=== PATIENT | male | born 1960 | race Caucasian/White ===

== ENCOUNTER 2022-05-07 16:18 | Observation (INO) ==
--- NOTE | 2022-05-07 16:28 | Emergency Department Note ---
History of Present Illness General Chief complaint: Abdominal Pain Stated complaint: ABDOMINAL PAIN, NAUSEA, VOMITING Time Seen by Provider: 05/07/22 16:24 History of Present Illness Maximum Pain Intensity: 10 62-year-old male who presents to the emergency department with his with co mplaint of severe central abdominal pain. Reports that the pain started around 10 AM this morning while he was working. The patient reports that he ate a peanut butter filled doughnut, and had a coffee earlier in the morning. When he started to develop the discomfort, he sat down for a while, and the pain did improve. When the pain started to come back, he went to the [employer] in [place], sat down in the parking lot, and had multiple episodes of dry heaving. The patient then drove home, and reported that the pain did subside somewhat, but has now come back again. The pain does not radiate into the back or chest. He denies any significant alleviating or aggravating factors for the pain. He reports that his abdomen is grumbling. Patient last had a colonoscopy in 2019 showing polyps and internal hemorrhoids. The patient denies any recent change in stool pattern or urine. Patient denies any alleviating or aggravating factors for the pain at this time. Had some abdominal issues in the past when he lived in [place], [place]. He was referred to [facility] with a rather extensive work-up that was unremarkable. The patient currently rates his discomfort a 10 out of 10. Home Medications Medication Instructions Recorded Confirmed Type aspirin 81 mg tablet,delayed 81 mg PO DAILY #90 tabs 12/20/20 05/07/22 Rx release cholecalciferol (vitamin D3) 25 25 mcg PO DAILY #30 caps 10/17/21 05/07/22 Rx mcg (1,000 unit) capsule mecobalamin (vitamin B12) 1,000 1,000 mcg sublingual DAILY #30 tabs 10/17/21 05/07/22 Rx mcg disintegrating tablet,sublingual pravastatin 10 mg tablet 10 mg PO DAILY #30 tabs 11/02/21 05/07/22 Rx enalapril maleate 20 mg tablet 20 mg PO BID #180 tabs 01/01/22 05/07/22 Rx levothyroxine 88 mcg tablet 88 mcg PO DAILY #90 tabs 01/01/22 05/07/22 Rx sildenafil 50 mg tablet 50 mg PO DAILY PRN sexual activity 04/17/22 05/07/22 Rx #30 tabs Allergies Allergy/AdvReac Type Severity Reaction Status Date / Time rosuvastatin AdvReac myalgia Verified 05/07/22 16:39 Past Med/Surg History Medical History Carotid artery stenosis with cerebral infarction Chest pain Hx TIA/stroke w/o resid Hyperlipidemia Hypertension Hypothyroidism Psoriasis Surgical History H/O colonoscopy H/O oral surgery Family History Grandmother (Maternal) Myocardial infarction Father Colon cancer Denies family history of Ovarian cancer Prostate cancer Breast cancer Social History Smoking Status: Former smoker Tobacco Type: Cigarettes packs per day: 1; Second Hand Exposure: No; Do You Dip or Chew Tobacco: No; Hx Alcohol Use: Yes Alcohol type: beer Hx Substance Use: No Preferred Language: Gambian Communication Ability: Unable Visual Impairment: No Limitations Hearing Ability: Normal Mechanist Required: No Beliefs That Will Affect Care: None marital status: Current Living Situation: Spouse current occupational status: employed Other Information That Helps Us Care for You: No Feels Safe at Home: Yes Safety Concerns: Feels Safe At This Time Dental Care, Regularly: Yes Physical Activity Frequency: Does not Exercise Seatbelt Use: always Review of Systems 10 system review was performed and was negative except for pertinent positives and negatives as indicated in history of present illness Physical Exam Vital Signs Vital Signs - 24 hr 05/07/22 16:19 05/07/22 17:44 05/07/22 16:31 Temperature 36.9 C Temperature Source Oral Pulse Rate 72 Pulse Rate [Apical] 73 Pulse Rhythm [Apical] Regular Pulse Strength [Apical] Normal Respiratory Rate 20 20 Respiratory Effort / Characteristics Non-Labored Spontaneous Non-Labored Respiratory Depth Normal Normal Respiratory Pattern Regular Blood Pressure 214/94 H Blood Pressure [Right Arm] 212/94 H Blood Pressure Mean 134 Blood Pressure Mean [Right Arm] 133 Blood Pressure Position Sitting Blood Pressure Position [Right Arm] Lying Pulse Oximetry 97 96 95 Oxygen Delivery Method Room Air Room Air Room Air Oxygen Flow Rate Sepsis Recent Fever Within 48 Hours No Sepsis New/Unexplained Change in Mental Status No Sepsis Action Taken by Nursing No Action Required Oxygen Flow Rate - Titration Pulse Oximetry Post Tiitration 05/07/22 17:31 05/07/22 18:12 05/07/22 18:12 Temperature Temperature Source Pulse Rate Pulse Rate [Apical] 71 69 Pulse Rhythm [Apical] Regular Regular Pulse Strength [Apical] Normal Normal Respiratory Rate 20 18 Respiratory Effort / Characteristics Non-Labored Spontaneous Non-Labored Spontaneous Respiratory Depth Normal Normal Respiratory Pattern Regular Regular Blood Pressure Blood Pressure [Right Arm] 163/96 H 143/72 H Blood Pressure Mean Blood Pressure Mean [Right Arm] 118 95 Blood Pressure Position Blood Pressure Position [Right Arm] Sitting Sitting Pulse Oximetry 96 86 L 93 Oxygen Delivery Method Room Air Nasal Cannula Nasal Cannula Oxygen Flow Rate 0 2 Sepsis Recent Fever Within 48 Hours Sepsis New/Unexplained Change in Mental Status Sepsis Action Taken by Nursing Oxygen Flow Rate - Titration 2 Pulse Oximetry Post Tiitration 93 05/07/22 20:00 Temperature Temperature Source Pulse Rate Pulse Rate [Apical] 68 Pulse Rhythm [Apical] Regular Pulse Strength [Apical] Respiratory Rate 16 Respiratory Effort / Characteristics Respiratory Depth Respiratory Pattern Blood Pressure Blood Pressure [Right Arm] 157/114 H Blood Pressure Mean Blood Pressure Mean [Right Arm] 128 Blood Pressure Position Blood Pressure Position [Right Arm] Pulse Oximetry 96 Oxygen Delivery Method Oxygen Flow Rate Sepsis Recent Fever Within 48 Hours Sepsis New/Unexplained Change in Mental Status Sepsis Action Taken by Nursing Oxygen Flow Rate - Titration Pulse Oximetry Post Tiitration CONSTITUTIONAL: Healthy and well nourished. Alert and oriented X 3. Patient appears in moderate to severe discomfort. Patient appears restless. HEENT: No scleral icterus or conjunctival injection/pallor. Mucous membranes are dry. NECK: Full active range of motion without discomfort. LYMPHATICS: No cervical chain adenopathy. RESPIRATORY: Clear to auscultation bilaterally with no wheezing, crackles, rhonchi or stridor. CARDIOVASCULAR: Regular rate and rhythm with no murmurs, rubs or gallops. GASTROINTESTINAL: Bowel sounds present in all quadrants. Patient does not have any focal abdominal tenderness to palpation. Negative McBurney's point tenderness. Negative CVA tenderness. No palpable pulsatile masses. No bruits on auscultation. MUSCULOSKELETAL: Full range of motion of all joints without discomfort. INTEGUMENTARY: No rash or other significant dermatologic conditions noted. HEMATOLOGIC: No ecchymosis or petechiae. PSYCHIATRIC: Positive affect. NEUROLOGIC: No focal neurologic deficits noted. Course Course Patient history and physical exam were performed. Nurses notes were reviewed. Vital signs were reviewed, showing an elevated blood pressure. IV access was established, and labs are drawn. The patient was hydrated with a liter normal saline, and administered IV morphine and Zofran for pain and nausea. Review of labs leukocytosis with left shift and bandemia. Lactate was normal. CMP shows an elevated random glucose, otherwise labs were grossly normal. Urinalysis was not suggestive of infection. Prior to CT imaging, I did receive a phone call from the patient's nurse that he was in severe discomfort and crawling all over the bed. At this point, I became concerned for possible aortic dissection, and changed his CT order to a CT angiogram of the abdomen and pelvis, which was performed and showed a possible small bowel obstruction. Upon reevaluation, the patient did report improvement of pain, but reported that the pain was starting to come back again. The case was also discussed with Dr. Perez, ED team physician, who recommended consultation with the hospitalist service for possible admission. The patient was in agreement with this plan as well. COVID-19 test was ordered and was negative. Case was further discussed with Dr. Swan, [facility] hospitalist, who has agreed with admission. Please see hospitalist dictations for further treatment and final disposition. Administered Medications Heparin Sodium (Porcine) (Heparin Sod 5,000 Unit/0.5 Ml Vial) 5,000 units SQ Q 12 MICHAEL Stop: 06/06/22 21:37 Last Admin: 05/07/22 22:34 Dose: Not Given Documented By: SANTA Lactated Ringer's (Lr) 1,000 mls @ 115 mls/hr IV .Q8H42M MICHAEL Stop: 06/06/22 20:14 Last Admin: 05/07/22 22:33 Dose: 115 mls/hr Documented By: SANTA Acetaminophen (Ofirmev) 1,000 mg in 100 mls @ 400 mls/hr IV Q8H PRN PRN Reason: mild pain while NPO Stop: 05/10/22 21:37 Last Infusion: 05/07/22 22:34 Dose: 0 mls/hr Documented By: Admin: 05/07/22 22:11 Dose: 400 mls/hr Documented By: SANTA Discontinued Medications Hydromorphone HCl (Hydromorphone Inj 1 Mg/Ml Syringe) 1 mg IV NOW STA Stop: 05/07/22 17:26 Last Admin: 05/07/22 17:28 Dose: 1 mg Documented By: MYRTLE Sodium Chloride (Nss 1000ml) 1,000 mls @ 999 mls/hr IV .Q1H1M STA Stop: 05/07/22 17:39 Last Infusion: 05/07/22 18:12 Dose: 0 mls/hr Documented By: Admin: 05/07/22 17:12 Dose: 999 mls/hr Documented By: MYRTLE Ioversol (Optiray 300 500ml) 115 ml IV ONCE ONE Stop: 05/07/22 17:52 Last Admin: 05/07/22 17:54 Dose: 115 ml Documented By: ALANA Morphine Sulfate (Morphine Sulfate 4 Mg/Ml 1 Ml Carp\Vial) 4 mg IV NOW STA Stop: 05/07/22 16:40 Last Admin: 05/07/22 17:14 Dose: 4 mg Documented By: MYRTLE Ondansetron HCl (Ondansetron Inj 2 Mg/Ml 2 Ml Vial) 4 mg IV NOW STA Stop: 05/07/22 16:40 Last Admin: 05/07/22 17:12 Dose: 4 mg Documented By: MYRTLE Medical Decision Making Medical Records Attestation: I reviewed the patient's medical records. Home Medications Current Medication List: was personally reviewed by me Laboratory Data Attestation: I reviewed the patient's lab results. Result diagrams: 05/07/22 16:30 05/07/22 16:30 Lab Results 05/07/22 05/07/22 05/07/22 Range/Units 16:30 16:30 16:30 WBC 12.12 H (4.8-10.8) K/ul RBC 5.35 (4.63-6.08) M/uL Hgb 16.8 (14.0-18.0) g/dl Hct 49.8 (40.1-51.0) % MCV 93.1 (80.0-100.0) fL MCH 31.4 (25.0-34.0) pg MCHC 33.7 (32.0-36.0) g/dL RDW Std Deviation 45.4 (36.4-46.3) fL RDW Coeff of Angelina 13.2 (11.5-14.5) % Plt Count 163 (130-400) K/uL MPV 12.5 H (9.4-12.4) fL Immature Gran % (Auto) 0.5 % Neut % (Auto) 84.3 % Lymph % (Auto) 11.4 % Addison % (Auto) 3.3 % Eos % (Auto) 0.2 % Baso % (Auto) 0.3 % Neut # (Auto) 10.22 H (1.4-6.5) K/uL Lymph # (Auto) 1.38 (1.2-3.4) K/uL Addison # (Auto) 0.40 (0.24-0.82) K/uL Eos # (Auto) 0.02 (0-0.50) K/uL Baso # (Auto) 0.04 (0-0.2) K/uL Immature Gran # (Auto) 0.06 H (0.00-0.02) K/uL Sodium 136 (136-145) mmol/L Potassium 4.5 (3.5-5.1) mmol/L Chloride 104 (98-107) mmol/L Carbon Dioxide 27 (21-32) mmol/L Anion Gap 5 (3-11) BUN 15 (6-23) mg/dl Creatinine 0.90 (0.6-1.4) mg/dl Est Cr Clr Drug Dosing 102.5 ml/min Est GFR ( Amer) 106.5 ml/min Est GFR (Non-Af Amer) 91.9 ml/min BUN/Creatinine Ratio 16.7 (10-20) Glucose 136 H (70-99(Fasting)) mg/dl Lactate (0.4-2.0) mmol/L Calcium 9.6 (8.5-10.1) mg/dl Total Bilirubin 0.4 (0.2-1.0) mg/dl AST 16 (13-39) U/L ALT 22 (7-52) U/L Alkaline Phosphatase 81 (34-104) U/L Troponin I High Sens 7.1 (0-20) pg/ml Total Protein 7.6 (6.0-8.3) gm/dl Albumin 4.7 (3.4-5.0) gm/dl Globulin 2.9 (2.5-4.0) gm/dl Albumin/Globulin Ratio 1.6 (0.9-2) Lipase 24 (11-82) U/L Urine Color Yellow Urine Appearance Clear (Clear) Urine pH 7.5 (4.5-7.5) Ur Specific [place] 1.020 (1.000-1.030) Urine Protein 1+ H (Negative) Urine Glucose (UA) Negative (Negative) Urine Ketones Negative (Negative) Urine Blood Negative (Negative) Urine Nitrite Negative (Negative) Urine Bilirubin Negative (Negative) Urine Urobilinogen Negative (Negative) Ur Leukocyte Esterase Negative (Negative) Urine WBC (Auto) 1-5 (0-5) /hpf Urine RBC (Auto) 0-4 (0-4) /hpf U Hyaline Cast (Auto) 1-5 (0-5) /lpf U Epithel Cells (Auto) 10-20 H (0-5) /lpf Urine Bacteria (Auto) Negative (Negative) 05/07/22 Range/Units 17:31 WBC (4.8-10.8) K/ul RBC (4.63-6.08) M/uL Hgb (14.0-18.0) g/dl Hct (40.1-51.0) % MCV (80.0-100.0) fL MCH (25.0-34.0) pg MCHC (32.0-36.0) g/dL RDW Std Deviation (36.4-46.3) fL RDW Coeff of Angelina (11.5-14.5) % Plt Count (130-400) K/uL MPV (9.4-12.4) fL Immature Gran % (Auto) % Neut % (Auto) % Lymph % (Auto) % Addison % (Auto) % Eos % (Auto) % Baso % (Auto) % Neut # (Auto) (1.4-6.5) K/uL Lymph # (Auto) (1.2-3.4) K/uL Addison # (Auto) (0.24-0.82) K/uL Eos # (Auto) (0-0.50) K/uL Baso # (Auto) (0-0.2) K/uL Immature Gran # (Auto) (0.00-0.02) K/uL Sodium (136-145) mmol/L Potassium (3.5-5.1) mmol/L Chloride (98-107) mmol/L Carbon Dioxide (21-32) mmol/L Anion Gap (3-11) BUN (6-23) mg/dl Creatinine (0.6-1.4) mg/dl Est Cr Clr Drug Dosing ml/min Est GFR ( Amer) ml/min Est GFR (Non-Af Amer) ml/min BUN/Creatinine Ratio (10-20) Glucose (70-99(Fasting)) mg/dl Lactate 1.1 (0.4-2.0) mmol/L Calcium (8.5-10.1) mg/dl Total Bilirubin (0.2-1.0) mg/dl AST (13-39) U/L ALT (7-52) U/L Alkaline Phosphatase (34-104) U/L Troponin I High Sens (0-20) pg/ml Total Protein (6.0-8.3) gm/dl Albumin (3.4-5.0) gm/dl Globulin (2.5-4.0) gm/dl Albumin/Globulin Ratio (0.9-2) Lipase (11-82) U/L Urine Color Urine Appearance (Clear) Urine pH (4.5-7.5) Ur Specific [place] (1.000-1.030) Urine Protein (Negative) Urine Glucose (UA) (Negative) Urine Ketones (Negative) Urine Blood (Negative) Urine Nitrite (Negative) Urine Bilirubin (Negative) Urine Urobilinogen (Negative) Ur Leukocyte Esterase (Negative) Urine WBC (Auto) (0-5) /hpf Urine RBC (Auto) (0-4) /hpf U Hyaline Cast (Auto) (0-5) /lpf U Epithel Cells (Auto) (0-5) /lpf Urine Bacteria (Auto) (Negative) Imaging Data Attestation: I personally reviewed and interpreted this imaging study as follows: My Impression: My interpretation of a CT with IV contrast of the abdomen and pelvis is suggestive of a small bowel obstruction. No evidence for aortic dissection, diverticulitis, appendicitis or abdominal free air. Radiologist report was also reviewed. Radiologist's Impression: Abdomen/Pelvis CTA 05/07/22 17:27 CT ANGIOGRAPHY OF THE ABDOMEN AND PELVIS CLINICAL HISTORY: Severe central abdominal pain. COMPARISON STUDY: CT of the abdomen and pelvis December 04, 2013. TECHNIQUE: Helical axial images of the abdomen and pelvis were obtained during arterial phase following intravenous injection 115 cc Optiray 320 IV. Sagittal and coronal reconstructed reviewed as well as maximal intensity projections on an independent 3-D workstation. Automated exposure control was utilized for the study. A dose lowering technique was utilized adhering to the principles of ALARA. FINDINGS: Lung bases are unremarkable. No pneumatosis, free air or portal venous gas is present. A 1.6 cm hypervascular right hepatic dome lesion is unchanged since prior CT and MRI. This is benign. This favors focal nodular hyperplasia. Spleen, adrenal glands and pancreas are unremarkable. There is no biliary or pancreatic ductal dilatation. There is no hydronephrosis. The appendix is normal. Multiple loops of mildly dilated jejunum are noted with possible mild wall thickening. There is a possible transition point within the left upper quadrant on axial image 199 of 511. The more distal small bowel is relatively decompressed. Sigmoid diverticulosis is noted without evidence for acute diverticulitis. There is no lymphadenopathy. There is no ascites. No fluid collection to suggest an abscess. There is moderate plaque of the abdominal aorta which is normal in caliber. The major branch vessels are patent. There is no dissection or aneurysm within the abdomen or pelvis. IMPRESSION: 1. Several loops of mildly dilated jejunum with possible transition point within the left upper quadrant. Mild jejunal wall thickening. These findings could reflect a developing partial small bowel obstruction or a nonspecific enteritis. 2. Moderate plaque of the abdominal aorta. Patent branch vessels. No dissection or aneurysm within the abdomen or pelvis. 3. Stable 1.6 cm hypervascular right hepatic dome lesion suggestive of focal nodular hyperplasia. This is benign. 4. Normal appendix. ACT 112: Negative or not required by law. Electronically signed by: Selvin Leija M.D. 05/07/2022 6:20 PM Blood Pressure Blood Pressure Findings: Elevated blood pressure MDM Narrative The emergency department with complaint of severe abdominal pain, nausea and vomiting. With the severity of his discomfort while in the emergency department, I did elect to do CT angiography of the abdomen and pelvis, showing no evidence for aortic dissection. A partial small bowel obstruction is suspected. CT does not show evidence for diverticulitis, appendicitis or perforation. Infectious etiology was also considered with the patient's mild leukocytosis, however this could also be reactive. Laboratory studies are not suggestive of pancreatitis, cholecystitis or hepatitis. Urinalysis also was not suggestive of UTI or kidney stone. Impression & Plan Small bowel obstruction, Continuous severe abdominal pain, Nausea and vomiting Discharge Plan Visit Data Chief Complaint: Abdominal Pain Stated Complaint: ABDOMINAL PAIN, NAUSEA, VOMITING ED Provider: Prashant Perez ED Midlevel Provider: Tito Kinney Discharge Problem: Small bowel obstruction, Continuous severe abdominal pain, Nausea and vomiting Patient Disposition: Admitted As Inpatient Discharge Instructions Interventions: ED Discharge Assessment Last Done: 05/07/22 21:40
[2022-05-07] MEDS ORDERED: ONDANSETRON INJ 2 MG/ML 2 ML VIAL IV STA (16:39)
[2022-05-07] MEDS ORDERED: MoRPHine SULFATE 4 MG/ML 1 ML CARP\\VIAL IV STA (16:39)
[2022-05-07] MEDS ORDERED: SODIUM CHLORIDE 0.9% 1000ML 1,000 ML IV STA (16:39)
[2022-05-07 16:52] LABS: Basophils # (auto) 0.04 K/uL (0-0.2); Basophils % (auto) 0.3 %; Eosinophils # (auto) 0.02 K/uL (0-0.50); Eosinophils % (auto) 0.2 %; Hematocrit (blood only) 49.8 % (40.1-51.0); Hemoglobin 16.8 g/dl (14.0-18.0); Immature Granulocytes # (auto) 0.06 K/uL (0.00-0.02); Immature Granulocytes % (auto) 0.5 %; Lymphocytes # (auto) 1.38 K/uL (1.2-3.4); Lymphocytes % (auto) 11.4 %; Mean Corpuscular Hemoglobin 31.4 pg (25.0-34.0); Mean Corpuscular Hgb Conc 33.7 g/dL (32.0-36.0); Mean Corpuscular Volume 93.1 fL (80.0-100.0); Mean Platelet Volume 12.5 fL (9.4-12.4); Monocytes % (auto) 3.3 %; Neutrophils # (auto) 10.22 K/uL (1.4-6.5); Neutrophils % (auto) 84.3 %; Platelet Count 163 K/uL (130-400); RDW Coefficient of Variation 13.2 % (11.5-14.5); RDW Standard Deviation 45.4 fL (36.4-46.3); Red Blood Count 5.35 M/uL (4.63-6.08); White Blood Count 12.12 K/ul (4.8-10.8)
[2022-05-07 17:08] LABS: Appearance Urine Clear (Clear); Bacteria Urine Automated Negative (Negative); Bilirubin Urine Negative (Negative); Blood Urine Negative (Negative); Color Urine Yellow; Glucose Urine UA Negative (Negative); Ketones Urine Negative (Negative); Leukocyte Esterase Urine Negative (Negative); Nitrite Urine Negative (Negative); RBC Urine Automated 0-4 /hpf (0-4); Urobilinogen Urine Negative (Negative); pH Urine 7.5 (4.5-7.5)
[2022-05-07 17:12] LABS: Protein Urine 1+ (Negative)
[2022-05-07 17:25] LABS: Albumin Globulin Ratio 1.6 (0.9-2); Albumin Level 4.7 gm/dl (3.4-5.0); BUN Creatinine Ratio 16.7 (10-20); Bilirubin,Total 0.4 mg/dl (0.2-1.0); Calcium 9.6 mg/dl (8.5-10.1); Creatinine Clr Calc Pharmacy 102.5 ml/min; Est GFR (African American) 106.5 ml/min; Est GFR (Non-African American) 91.9 ml/min; Globulin 2.9 gm/dl (2.5-4.0); Potassium 4.5 mmol/L (3.5-5.1); Total Protein 7.6 gm/dl (6.0-8.3)
[2022-05-07] MEDS ORDERED: HYDROmorphone INJ 1 MG/ML SYRINGE IV STA (17:25)
[2022-05-07 17:28] LABS: Troponin I High Sensitivity 7.1 pg/ml (0-20)
[2022-05-07] MEDS ORDERED: OPTIRAY 300 500mL IV ONE (17:51)
--- NOTE | 2022-05-07 18:22 | CT Scan Report ---
CT ANGIOGRAPHY OF THE ABDOMEN AND PELVIS CLINICAL HISTORY: Severe central abdominal pain. COMPARISON STUDY: CT of the abdomen and pelvis December 04, 2013. TECHNIQUE: Helical axial images of the abdomen and pelvis were obtained during arterial phase followi ng intravenous injection 115 cc Optiray 320 IV. Sagittal and coronal reconstructed reviewed as well a s maximal intensity projections on an independent 3-D workstation. Automated exposure control was uti lized for the study. A dose lowering technique was utilized adhering to the principles of ALARA. FINDINGS: Lung bases are unremarkable. No pneumatosis, free air or portal venous gas is present. A 1. 6 cm hypervascular right hepatic dome lesion is unchanged since prior CT and MRI. This is benign. Thi s favors focal nodular hyperplasia. Spleen, adrenal glands and pancreas are unremarkable. There is no biliary or pancreatic ductal dilatation. There is no hydronephrosis. The appendix is normal. Multipl e loops of mildly dilated jejunum are noted with possible mild wall thickening. There is a possible t ransition point within the left upper quadrant on axial image 199 of 511. The more distal small bowel is relatively decompressed. Sigmoid diverticulosis is noted without evidence for acute diverticuliti s. There is no lymphadenopathy. There is no ascites. No fluid collection to suggest an abscess. There is moderate plaque of the abdominal aorta which is normal in caliber. The major branch vessels are p atent. There is no dissection or aneurysm within the abdomen or pelvis. IMPRESSION: 1. Several loops of mildly dilated jejunum with possible transition point within the left upper quadr ant. Mild jejunal wall thickening. These findings could reflect a developing partial small bowel obst ruction or a nonspecific enteritis. 2. Moderate plaque of the abdominal aorta. Patent branch vessels. No dissection or aneurysm within th e abdomen or pelvis. 3. Stable 1.6 cm hypervascular right hepatic dome lesion suggestive of focal nodular hyperplasia. Thi s is benign. 4. Normal appendix. ACT 112: Negative or not required by law. Electronically signed by: Selvin Leija M.D. 05/07/2022 6:20 PM
--- NOTE | 2022-05-07 20:33 | History & Physical Report ---
Date of Service May 07, 2022 Assessment & Plan (1) SBO (small bowel obstruction): Plan: Acute onset of abdominal pain with nausea and 1 episode of vomiting. No history of abdominal surgery - no evidence of infarction noted on imaging, and lactate <2.0, no elevation of WBC - NPO - IVF - Pain control - KUB in am - General Surgery consultation appreciated - if symptoms not improving consider contrasted study with follow thorough for prognostication (2) Hyperlipidemia: Plan: Continue Pravastatin hx of intolerance to other/higher doses of statin (3) Hypertension: Plan: NPO - IV bolus dosing if >180/95 or symptomatic (4) Hypothyroidism: Plan: Continue synthroid when not NPO - If NPO status >24 hours convert Synthroid to IV with dose reduction (5) Vitamin B12 deficiency: Plan: Continue B12 oral when not NPO (6) Hx TIA/stroke w/o resid: Plan: Previously on Prdaxa and Plavix- now therapy of asa and statin - NPO - restart asa when able, if remains npo- consider rectal (7) Carotid artery stenosis with cerebral infarction: Plan: Routine imaging 04/23 Approximately 50-60% focal stenosis within the proximal left internal carotid artery No significant stenosis within the right internal carotid artery. A 5 mm penetrating ulcer at the takeoff of the right internal carotid artery. History of Present Illness Primary Care Provider: Edel Anthony MD 62 YOM with medical history of: TIA, HTN, Amberly's thyroiditis, b12 deficiency, carotid artery stenosis, right upper quad pain, current smoker. Patient comes to the EMD today for complaints of abdominal pain. This started this morning on his way to work. It was cramping type pain at epigastrium that progressed to bandlike pain without further radiation and associated with nausea and 1 episode of vomiting. He ate a doughnut this morning which he eventually threw back up around 1400. His pain progressed and he attempted to go the bathroom prior to coming to [facility] and he did not pass any gas or stool. Patient has no history of abdominal surgeries. He and his at the same food all weekend and she is without symptoms. In the EMD the patient had routine blood work completed, CT angio of the abdomen performed, this was interpreted as jejunal thickening, mildly dilated jejunum with possible transition point with differential of enteritis or partial small bowel obstruction. His pain was controlled following Dilaudid administration. His abdomen is soft, non tender, without any further vomiting or nausea. Last BM was this morning and noted to be more firm than normal. Patient will be admitted to medical floor, conservative therapy with NPO, IVF, pain control with IV Tylenol and Dilaudid, KUB in am and GS consultation. COVID test on admission is: NEGATIVE Allergies Allergy/AdvReac Type Severity Reaction Status Date / Time rosuvastatin AdvReac myalgia Verified 05/07/22 16:39 Home Medications Medication Instructions Recorded Confirmed Type aspirin 81 mg tablet,delayed 81 mg PO DAILY #90 tabs 12/20/20 05/07/22 Rx release cholecalciferol (vitamin D3) 25 25 mcg PO DAILY #30 caps 10/17/21 05/07/22 Rx mcg (1,000 unit) capsule mecobalamin (vitamin B12) 1,000 1,000 mcg sublingual DAILY #30 tabs 10/17/21 05/07/22 Rx mcg disintegrating tablet,sublingual pravastatin 10 mg tablet 10 mg PO DAILY #30 tabs 11/02/21 05/07/22 Rx enalapril maleate 20 mg tablet 20 mg PO BID #180 tabs 01/01/22 05/07/22 Rx levothyroxine 88 mcg tablet 88 mcg PO DAILY #90 tabs 01/01/22 05/07/22 Rx sildenafil 50 mg tablet 50 mg PO DAILY PRN sexual activity 04/17/22 05/07/22 Rx #30 tabs Past Med/Surg History Medical History Carotid artery stenosis with cerebral infarction Chest pain Hx TIA/stroke w/o resid Hyperlipidemia Hypertension Hypothyroidism Psoriasis Surgical History H/O colonoscopy H/O oral surgery Family History Grandmother (Maternal) Myocardial infarction Father Colon cancer Denies family history of Ovarian cancer Prostate cancer Breast cancer Social History Smoking Status: Current every day smoker Tobacco Type: Cigarettes packs per day: 1; Hx Alcohol Use: Yes Hx Substance Use: No Preferred Language: Bruneian Visual Impairment: No Limitations Hearing Ability: Normal marital status: Current Living Situation: Family current occupational status: employed Feels Safe at Home: Yes Dental Care, Regularly: Yes Physical Activity Frequency: Does not Exercise Seatbelt Use: always Review of Systems Review of Systems: REVIEW OF SYSTEMS: Constitutional: No fever, sweats or chills Eyes: No diplopia, no worsening or blurred vision ENT: normal hearing, no trouble swallowing Respiratory: No cough, sputum, dyspnea at rest or on exertion Cardiovascular: No chest pain, tightness or palpitations Abdomen: (+) pain, nausea, vomiting, no diarrhea or constipation Musculoskeletal: No joint pain, calf pain, swelling Neurologic: No weakness, numbness/tingling, or balance problems Psychiatric: No anxiety or depression Skin: No rash or itch Physical Exam Physical Exam: PHYSICAL EXAM: General: awake, alert, no apparent distress Head: Normocephalic, atraumatic ENT: PERRL, EOMI, no pharyngeal exudate, mucous membranes moist Neuro: AAO x 3, speech clear and appropriate, strength intact bilaterally 5/5, sensation intact and equal all extremities and dermatomes, no pronator drift Chest: equal rise and fall of the chest, no accessory muscle use, no heaves or thrills, Clear to auscultation, on room air, Cardiac: Regular rate and rhythm, telemetry reviewed, skin warm dry, cap refill <3 seconds, peripheral pulses +2 no JVD, no murmur, no JVD, no edema GI: hypoactive bowel sounds throughout, soft, nontender to palpation, no rebound, guarding or tenderness : Spontaneously voiding, no pain, no CVA tenderness, Extremities: Normal inspection, no peripheral edema or erythema, calfs nontender to palpation Psych: Normal mood and affect Skin: no rash or erythema Results & Data Results & Data ([facility]) Vital Signs (Past 12 Hours) Vital Signs Temp Pulse Pulse Resp BP BP Pulse Ox 05/07/22 18:12 69 18 143/72 H 93 05/07/22 18:12 86 L 05/07/22 17:31 71 20 163/96 H 96 05/07/22 16:31 73 20 212/94 H 95 05/07/22 17:44 96 05/07/22 16:19 36.9 C 72 20 214/94 H 97 O2 Del Method O2 Flow Rate 05/07/22 18:12 Nasal Cannula 2 05/07/22 18:12 Nasal Cannula 0 05/07/22 17:31 Room Air 05/07/22 16:31 Room Air 05/07/22 17:44 Room Air 05/07/22 16:19 Room Air Laboratory Results Abnormal lab results 05/07/22 05/07/22 05/07/22 Range/Units 16:30 16:30 16:30 WBC 12.12 H (4.8-10.8) K/ul MPV 12.5 H (9.4-12.4) fL Neut # (Auto) 10.22 H (1.4-6.5) K/uL Immature Gran # (Auto) 0.06 H (0.00-0.02) K/uL Glucose 136 H (70-99(Fasting)) mg/dl Urine Protein 1+ H (Negative) U Epithel Cells (Auto) 10-20 H (0-5) /lpf Diagnostic Findings Abdomen/Pelvis CTA 05/07/22 17:27 CT ANGIOGRAPHY OF THE ABDOMEN AND PELVIS CLINICAL HISTORY: Severe central abdominal pain. COMPARISON STUDY: CT of the abdomen and pelvis December 04, 2013. TECHNIQUE: Helical axial images of the abdomen and pelvis were obtained during arterial phase following intravenous injection 115 cc Optiray 320 IV. Sagittal and coronal reconstructed reviewed as well as maximal intensity projections on an independent 3-D workstation. Automated exposure control was utilized for the study. A dose lowering technique was utilized adhering to the principles of ALARA. FINDINGS: Lung bases are unremarkable. No pneumatosis, free air or portal venous gas is present. A 1.6 cm hypervascular right hepatic dome lesion is unchanged since prior CT and MRI. This is benign. This favors focal nodular hyperplasia. Spleen, adrenal glands and pancreas are unremarkable. There is no biliary or pancreatic ductal dilatation. There is no hydronephrosis. The appendix is normal. Multiple loops of mildly dilated jejunum are noted with possible mild wall thickening. There is a possible transition point within the left upper quadrant on axial image 199 of 511. The more distal small bowel is relatively decompressed. Sigmoid diverticulosis is noted without evidence for acute diverticulitis. There is no lymphadenopathy. There is no ascites. No fluid collection to suggest an abscess. There is moderate plaque of the abdominal aorta which is normal in caliber. The major branch vessels are patent. There is no dissection or aneurysm within the abdomen or pelvis. IMPRESSION: 1. Several loops of mildly dilated jejunum with possible transition point within the left upper quadrant. Mild jejunal wall thickening. These findings could reflect a developing partial small bowel obstruction or a nonspecific enteritis. 2. Moderate plaque of the abdominal aorta. Patent branch vessels. No dissection or aneurysm within the abdomen or pelvis. 3. Stable 1.6 cm hypervascular right hepatic dome lesion suggestive of focal nodular hyperplasia. This is benign. 4. Normal appendix. ACT 112: Negative or not required by law. Electronically signed by: Selvin Leija M.D. 05/07/2022 6:20 PM Medications Administered Home Medications aspirin 81 mg tablet,delayed release 81 mg PO DAILY #90 tabs 12/20/20 [Rx Confirmed 05/07/22] cholecalciferol (vitamin D3) 25 mcg (1,000 unit) capsule 25 mcg PO DAILY #30 caps 10/17/21 [Rx Confirmed 05/07/22] mecobalamin (vitamin B12) 1,000 mcg disintegrating tablet,sublingual 1,000 mcg sublingual DAILY #30 tabs 10/17/21 [Rx Confirmed 05/07/22] pravastatin 10 mg tablet 10 mg PO DAILY #30 tabs 11/02/21 [Rx Confirmed 05/07/22] enalapril maleate 20 mg tablet 20 mg PO BID #180 tabs 01/01/22 [Rx Confirmed 05/07/22] levothyroxine 88 mcg tablet 88 mcg PO DAILY #90 tabs 01/01/22 [Rx Confirmed 05/07/22] sildenafil 50 mg tablet 50 mg PO DAILY PRN sexual activity #30 tabs 04/17/22 [Rx Confirmed 05/07/22] Active Medications Lactated Ringer's (Lr) 1,000 mls @ 115 mls/hr IV .[id number] [facility] Stop: 06/06/22 20:14 ECG Additional Comments: Normal sinus rhythm Normal ECG No previous ECGs available Code Status & VTE Plan Code Status CODE: FULL VTE: SCDS, Heparin 5000 units sub q q12 Supervising Physician Co-Signing Physician Notes Patient seen and examined, chart reviewed, case discussed with JOHNNY Navarro and I agree with the assessment and plan as above. In brief, patient is a 62yo male with history of HTN, HLP, Hypothyroidism and prior TIA presenting with abdominal pain with nausea and non-bloody/non-bilious vomiting. Presently not passing flatus, no BM. Imaging as above suggestive of partial SBO vs enteritis. Patient in significant discomfort upon arrival to the ER, now improved after IV Dilaudid and Morphine. No additional complaints On exam he is afebrile, HD stable, non-toxic in appearance. Resting comfortably Skin - intact, no rash HEENT - NC/AT, PERRL, MMM, neck supple Heart - +S1/S2, regular, no m/r/g Lungs - CTA Abd - diminished bowel sounds, soft, ND, tender in lower quadrants with palpation, no rebound/guarding/peritoneal signs Ext -warm, well perfused, no clubbing/cyanosis or edema Labs and images reviewed Assessment/Plan - 62yo male with history of HTN, HLP, prior TIA and hypothyroidism presenting with possible partial SBO vs enteritis. Patient with no prior abdominal surgeries. Last colonoscopy in June 2019 during which one 5mm polyp in the cecum and one 4mm polyp in the ascending colon was removed (Pathology revealed Tubular Adenoma - recommended followup colonoscopy in 5 years). Presently pain and nausea is controlled. No distention. -Conservative management as above with NPO, anti-emetics, pain control -General Surgery consultation appreciated -Remainder as above PG Care Time/CCT Total # of Minutes Spent Total Time Spent with Patient: Total time spent is greater than 50% in coordination of care (as documented) at patient's floor/unit and/or counseling patient: Coding Level of Care Code 61434 Initial Inpt Care Lvl 3 Diagnoses SBO (small bowel obstruction) K56.609 Hyperlipidemia E78.5 Hypertension I10 Hypothyroidism E03.9 Vitamin B12 deficiency E53.8 Hx TIA/stroke w/o resid Z86.73 Carotid artery stenosis with cerebral infarction I63.239
[2022-05-07] MEDS ORDERED: LACTATED RINGER'S 1,000 ML IV SCH (21:38)
[2022-05-07] MEDS ORDERED: HYDROmorphone INJ 0.5 MG/0.5 ML SYR IV PRN (21:38)
[2022-05-07] MEDS ORDERED: ACETAMINOPHEN 1,000 MG/100 ML VIAL IV PRN (21:38)
[2022-05-07] MEDS: LACTATED RINGER'S 1,000 ML IV SCH (22:33)
[2022-05-07] MEDS: HEPARIN SOD 5,000 UNIT/0.5 ML VIAL SQ SCH (22:34)
--- NOTE | 2022-05-07 23:17 | Surgery Consultation ---
Date of Consultation May 07, 2022 Assessment & Plan (1) Small bowel obstruction: Patient has been admitted on the hospitalist service. Recommend proceeding as follows: Provide analgesicsprovide antiemetics Hydrate with IV fluids Continue n.p.o. status. Consideration can be given to advancing diet upon return of bowel function I did discuss with the patient that he may have a developing small bowel obstruction or merely just a nonspecific enteritis. I outlined the plan above with him and he is in agreement. I did discuss with the patient that if his abdominal exam would deteriorate or if he develops uncontrolled nausea or vomiting an NG tube for gastric decompression may be required. I did express to the patient that I feel we can hold on placing an NG tube at this time as he had not had any nausea or vomiting since arrival to the hospital. Additional recommendations be forthcoming based on his clinical course as it unfolds Remainder of plan as directed by primary service History of Present Illness Reason for Consultation: Partial small bowel obstruction Attending Physician: Nelly Swan, History of Present Illness This is a 62-year-old male who presented to the emergency department secondary to abdominal pain. Patient says he was in his usual state of health yesterday when he developed abdominal pain earlier this morning. He described the pain as a cramp type pain that was worse in the epigastrium. He denies any radiation. He did have some nausea and vomiting earlier this morning but this has subsided. Patient notes that he did have a normal bowel movement this morning but has not had any bowel movement or flatus since arrival to the hospital. He does note that he has never had any prior abdominal surgeries. He denies any close contacts being ill. He notes his most recent oral intake was approximately 10:00 AM this morning. Since arrival to the hospital he has undergone labs and imaging which independent reviewed. CT scan of the abdomen pelvis showed that he had some dilation of several loops of jejunum with mild jejunal wall thickening. These findings were felt to represent either nonspecific enteritis or a developing partial small bowel obstruction. Labs include a CBC were white blood cell count was 12.1. Hemoglobin, hematocrit, and platelet count were noted to be normal. Chemistry profile showed sodium, potassium, BUN, and creatinine were normal. He did not have any elevation of his lactic acid level, LFTs, or lipase. Urinalysis was not indicative of infection. A COVID test was noted be negative. At the time of my interview the patient was resting comfortably in bed and he was in no distress. Allergies Allergy/AdvReac Type Severity Reaction Status Date / Time rosuvastatin AdvReac myalgia Verified 05/07/22 16:39 Home Medications Medication Instructions Recorded Confirmed Type aspirin 81 mg tablet,delayed 81 mg PO DAILY #90 tabs 12/20/20 05/07/22 Rx release cholecalciferol (vitamin D3) 25 25 mcg PO DAILY #30 caps 10/17/21 05/07/22 Rx mcg (1,000 unit) capsule mecobalamin (vitamin B12) 1,000 1,000 mcg sublingual DAILY #30 tabs 10/17/21 05/07/22 Rx mcg disintegrating tablet,sublingual pravastatin 10 mg tablet 10 mg PO DAILY #30 tabs 11/02/21 05/07/22 Rx enalapril maleate 20 mg tablet 20 mg PO BID #180 tabs 01/01/22 05/07/22 Rx levothyroxine 88 mcg tablet 88 mcg PO DAILY #90 tabs 01/01/22 05/07/22 Rx sildenafil 50 mg tablet 50 mg PO DAILY PRN sexual activity 04/17/22 05/07/22 Rx #30 tabs Patient History Medical History Carotid artery stenosis with cerebral infarction Chest pain Hx TIA/stroke w/o resid Hyperlipidemia Hypertension Hypothyroidism Psoriasis Surgical History H/O colonoscopy H/O oral surgery Family History Grandmother (Maternal) Myocardial infarction Father Colon cancer Denies family history of Ovarian cancer Prostate cancer Breast cancer Social History Smoking Status: Former smoker Tobacco Type: Cigarettes packs per day: 1; Second Hand Exposure: No; Do You Dip or Chew Tobacco: No; Hx Alcohol Use: Yes Alcohol type: beer Hx Substance Use: No Preferred Language: [place]an Communication Ability: Unable Visual Impairment: No Limitations Hearing Ability: Normal Speech Language Pathology Assistant Required: No Beliefs That Will Affect Care: None marital status: Current Living Situation: Spouse current occupational status: employed Other Information That Helps Us Care for You: No Feels Safe at Home: Yes Safety Concerns: Feels Safe At This Time Dental Care, Regularly: Yes Physical Activity Frequency: Does not Exercise Seatbelt Use: always Review of Systems Constitutional: no fever and no chills Eyes: no eye pain Ear, Nose, Mouth, Throat: no ear pain Respiratory: no cough and no dyspnea Cardiovascular: no chest pain Gastrointestinal: as per Subjective / HPI Genitourinary: no dysuria Musculoskeletal: no back pain Integumentary: no rash Neurologic: no localized weakness Physical Exam Constitutional: WD/WN, vitals as above Eyes: no conjunctival abnormality ENMT: Ears: no hearing impairment and no external ear abnormality Mouth: no oropharynx abnormality Neck: trachea midline Respiratory: normal respiratory effort; no respiratory distress and no labored breathing Cardiovascular: Rate/Rhythm: regular rate and regular rhythm Gastrointestinal (Abdomen): Abdomen is soft, nonrigid, and nondistended. There is minimal to no pain with palpation at the time of my exam. There is no rebound tenderness or guarding. Musculoskeletal: No calf tenderness Skin: no rashes Neurologic: moves all extremities Psychiatric: A+Ox3, euthymic affect Results & Data ([facility]) Vital Signs (Past 12 Hours) Vital Signs Temp Pulse Pulse Resp BP BP Pulse Ox 05/07/22 22:16 37.0 C 66 18 119/72 91 05/07/22 22:01 37.1 C 74 18 146/83 H 94 05/07/22 21:24 70 16 144/111 H 98 05/07/22 20:00 68 16 157/114 H 96 05/07/22 18:12 69 18 143/72 H 93 05/07/22 18:12 86 L 05/07/22 17:31 71 20 163/96 H 96 05/07/22 16:31 73 20 212/94 H 95 05/07/22 17:44 96 05/07/22 16:19 36.9 C 72 20 214/94 H 97 O2 Del Method O2 Flow Rate 05/07/22 22:16 Room Air 05/07/22 22:01 Room Air 05/07/22 21:24 05/07/22 20:00 05/07/22 18:12 Nasal Cannula 2 05/07/22 18:12 Nasal Cannula 0 05/07/22 17:31 Room Air 05/07/22 16:31 Room Air 05/07/22 17:44 Room Air 05/07/22 16:19 Room Air PG Care Time/CCT Total # of Minutes Spent Total Time Spent with Patient: Total time spent is greater than 50% in coordination of care (as documented) at patient's floor/unit and/or counseling patient: Coding Level of Care Code 90126 Inpt Consult Level 5 Diagnoses Small bowel obstruction K56.609
--- NOTE | 2022-05-08 06:38 | Surgery Progress Note ---
Date of Service May 08, 2022 Assessment & Plan (1) Nausea and vomiting: Plan: Suspect this is more of an enteritis than a bowel obstruction Begin clear liquids and advance diet as tolerated per medical team Encourage ambulation Doubt he will require urgent surgical intervention Discharge home if patient tolerates his diet Admission and Anticipated Discharge Date Admission Date: May 07, 2022 Subjective Patient is awake and alert Feels much improved Passing flatus Hungry Review of Systems Review of Systems: All systems reviewed & are unremarkable except as noted in HPI & below Physical Exam Physical Exam: Abdomen is relatively soft Normal bowel sounds Minimal tenderness Constitutional: well developed and well nourished; no acute distress Eyes: + anicteric sclerae Respiratory: normal respiratory effort; no respiratory distress Cardiovascular: Rate/Rhythm: regular rate Gastrointestinal (Abdomen): Inspection/Auscultation: normal bowel sounds; abdomen not distended Musculoskeletal: Head/Neck/Chest: head atraumatic Skin: no rashes, warm and dry Neurologic: awake Psychiatric: Orientation: alert Results & Data ([facility]) Vital Signs (Past 12 Hours) Vital Signs Temp Pulse Resp BP Pulse Ox O2 Del Method 05/07/22 22:16 37.0 C 66 18 119/72 91 Room Air 05/07/22 22:01 37.1 C 74 18 146/83 H 94 Room Air 05/07/22 21:24 70 16 144/111 H 98 05/07/22 20:00 68 16 157/114 H 96 PG Care Time/CCT Total # of Minutes Spent Total Time Spent with Patient: Total time spent is greater than 50% in coordination of care (as documented) at patient's floor/unit and/or counseling patient: Coding Level of Care Code 65798 Inpt Consult Level 3 Diagnoses Nausea and vomiting R11.2
[2022-05-08] MEDS: LACTATED RINGER'S 1,000 ML IV SCH (07:09)
[2022-05-08 08:08] LABS: Basophils # (auto) 0.04 K/uL (0-0.2); Basophils % (auto) 0.4 %; Eosinophils # (auto) 0.08 K/uL (0-0.50); Eosinophils % (auto) 0.8 %; Hemoglobin 15.3 g/dl (14.0-18.0); Immature Granulocytes # (auto) 0.04 K/uL (0.00-0.02); Immature Granulocytes % (auto) 0.4 %; Lymphocytes # (auto) 2.36 K/uL (1.2-3.4); Lymphocytes % (auto) 23.2 %; Mean Corpuscular Hgb Conc 33.3 g/dL (32.0-36.0); Mean Corpuscular Volume 93.3 fL (80.0-100.0); Mean Platelet Volume 12.7 fL (9.4-12.4); Monocytes # (auto) 0.77 K/uL (0.24-0.82); Monocytes % (auto) 7.6 %; Neutrophils # (auto) 6.88 K/uL (1.4-6.5); Neutrophils % (auto) 67.6 %; Platelet Count 142 K/uL (130-400); RDW Coefficient of Variation 13.4 % (11.5-14.5); RDW Standard Deviation 45.8 fL (36.4-46.3); Red Blood Count 4.93 M/uL (4.63-6.08); White Blood Count 10.17 K/ul (4.8-10.8)
[2022-05-08] MEDS: HEPARIN SOD 5,000 UNIT/0.5 ML VIAL SQ SCH (08:35)
[2022-05-08 08:38] LABS: Creatinine Clr Calc Pharmacy 105.7 ml/min; Est GFR (African American) 108.5 ml/min; Est GFR (Non-African American) 93.6 ml/min; Magnesium 1.8 mg/dl (1.7-2.4); Potassium 4.2 mmol/L (3.5-5.1)
--- NOTE | 2022-05-08 11:33 | Electrocardiogram Report ---
Test Reason : Blood Pressure : / mmHG Vent. Rate : 070 BPM Atrial Rate : 070 BPM P-R Int : 206 ms QRS Dur : 082 ms QT Int : 382 ms P-R-T Axes : 057 065 066 degrees QTc Int : 412 ms Normal sinus rhythm with 1st degree AV block No previous ECGs available Confirmed by Josef Berrios ([id number]) on 05/08/2022 11:33:18 AM Referred By: REFERRED SELF Confirmed By:Jorge Berrios
--- NOTE | 2022-05-08 11:50 | XRay Report ---
KUB CLINICAL HISTORY: Generalized abdominal pain. FINDINGS: 2 AP supine abdominal radiographs are correlated with abdominal CT dated 05/07/2022. Again se en are mildly distended and gas-filled loops of small bowel in the midabdomen. These measure up to 4. 8 cm in diameter. Gas and stool are noted in the colon. No evidence of intraperitoneal free air is se en on these supine images. There are no abnormal abdominal calcifications. The bony structures appear intact. IMPRESSION: 1. Mildly distended gas-filled loops of small bowel are again seen in the midabdomen. When correlated with yesterday's CT scan, a low-grade/developing bowel obstruction is not excluded. 2. No evidence of intraperitoneal free air is seen on these supine images. Electronically signed by: Mata Muniz M.D. 05/08/2022 11:48 AM
--- NOTE | 2022-05-08 12:49 | Discharge Summary ---
Date of Service May 08, 2022 Admission HPI Per Admitting Provider 62 YOM with medical history of: TIA, HTN, Amberly's thyroiditis, b12 deficiency, carotid artery stenosis, right upper quad pain, current smoker. Patient comes to the EMD today for complaints of abdominal pain. This started this morning on his way to work. It was cramping type pain at epigastrium that progressed to bandlike pain without further radiation and associated with nausea and 1 episode of vomiting. He ate a doughnut this morning which he eventually threw back up around 1400. His pain progressed and he attempted to go the bathroom prior to coming to EMD and he did not pass any gas or stool. Patient has no history of abdominal surgeries. He and his at the same food all weekend and she is without symptoms. In the EMD the patient had routine blood work completed, CT angio of the abdomen performed, this was interpreted as jejunal thickening, mildly dilated jejunum with possible transition point with differential of enteritis or partial small bowel obstruction. His pain was controlled following Dilaudid administration. His abdomen is soft, non tender, without any further vomiting or nausea. Last BM was this morning and noted to be more firm than normal. Patient will be admitted to medical floor, conservative therapy with NPO, IVF, pain control with IV Tylenol and Dilaudid, KUB in am and GS consultation. COVID test on admission is: NEGATIVE Principal Diagnosis Partial small bowel obstruction, enteritis Discharge Exam Gen: AAOx3, NAD HEENT: Anicteric sclerae, EOMI CV: RRR no mgr nl S1S2 Pulm: CTAB no wcr Abd: +BS soft NT ND no masses or hernias Ext: No edema, 2+ DP pulses Skin: No rashes, warm/dry Neuro: Full strength throughout Discharge Data Allergies Allergy/AdvReac Type Severity Reaction Status Date / Time rosuvastatin AdvReac myalgia Verified 05/07/22 16:39 Consultations 05/07/22 19:26 ED Decision to Admit Stat 05/07/22 21:38 Consult General Surgery Routine Ordered Studies 05/07/22 17:27 CT angio abdomen pelvis w con Stat Hospital Course (1) SBO (small bowel obstruction): Acute onset of abdominal pain with nausea and 1 episode of vomiting. No history of abdominal surgery - no evidence of infarction noted on imaging, and lactate <2.0, no elevation of WBC Improved, passing flatus and gas now in the colon on repeat KUB the day after admission He is tolerating full liquids, ambulating, has no symptoms Appreciate general surgery consultation-suspect mostly due to enteritis Stable for discharged home on low fiber diet x1 week and gradually add fiber back into diet (2) Hyperlipidemia: Continue Pravastatin hx of intolerance to other/higher doses of statin (3) Hypertension: As (4) Hypothyroidism: Continue synthroid (5) Vitamin B12 deficiency: Continue B12 oral (6) Hx TIA/stroke w/o resid: Previously on Pradaxa and Plavix- now therapy of asa and statin (7) Carotid artery stenosis with cerebral infarction: Routine imaging 04/23 Approximately 50-60% focal stenosis within the proximal left internal carotid artery No significant stenosis within the right internal carotid artery. A 5 mm penetrating ulcer at the takeoff of the right internal carotid artery. New antiplatelet and statin Plan Disposition-stable for discharged home Total Time Total Time Spent Total Time Spent (In Minutes): 35 minutes Discharge Plan Discharge Items Patient Disposition: Home - Self-Care Reason For Visit: ABDOMINAL PAIN,PARTIAL SBO/ENTERITIS Discharge Diagnosis: Partial small bowel obstruction Activity: Resume your previous activity Non-emergency contact: Primary Care Provider Call non-emergency contact if: your symptoms worsen and your pain is not controlled Follow-up/Referrals: Edel Anthony MD [Primary Care Provider] - (Follow-up within 1 week) Diet: Low Fiber Diet Comment: Low fiber diet x1 week then gradually increase fiber again Addtl Attending Provider Instructions: You are admitted due to a partial blockage of your small intestine which is likely from a gastroenteritis. This is now resolved. Gradually advance your diet at home but remain on a soft, low fiber diet for the next week or so. Do not take your Metamucil for at least a week. Pending Studies at Discharge: No Stand-Alone Forms: [facility] [employer], Smoking Cessation Medications and DC Order Prescriptions: Continued cholecalciferol (vitamin D3) 25 mcg (1,000 unit) capsule 25 mcg PO DAILY Qty: 30 0RF mecobalamin (vitamin B12) 1,000 mcg tablet,disintegrating 1,000 mcg sublingual DAILY Qty: 30 0RF Rx Instructions: place tablet under tongue and allow to dissolve for at least30 secs before swallowing enalapril maleate 20 mg tablet 20 mg PO BID Qty: 180 1RF levothyroxine 88 mcg tablet 88 mcg PO DAILY Qty: 90 1RF sildenafil 50 mg tablet 50 mg PO DAILY PRN (Reason: sexual activity) Qty: 30 0RF Rx Instructions: administer 30 minutes to 4 hours before activity pravastatin 10 mg tablet 10 mg PO DAILY Qty: 90 3RF aspirin 81 mg tablet,delayed release (DR/EC) 81 mg PO DAILY Qty: 90 3RF Discharge Orders: Discharge Order (Routine); Ordered 05/08/22 Ordered By: Clementina Dangelo Admission Data Admit Date/Time: 05/07/22 20:29 Attending Provider: Clementina Dangelo Admit Provider: Nelly Swan Primary Care Provider: Edel Anthony V. Other Providers: Kahlil Martel ; Nelly Swan Coding Level of Care Code D/C DAY MANAGEMENT >30 MINS Diagnoses SBO (small bowel obstruction) K56.609 Hyperlipidemia E78.5 Hypertension I10 Hypothyroidism E03.9 Vitamin B12 deficiency E53.8 Hx TIA/stroke w/o resid Z86.73 Carotid artery stenosis with cerebral infarction I63.239
== END 2022-05-08 14:32 | disposition home or self-care (01) ==
LOC: ED 16:18 → INTOOBSV 20:29 → 3N 20:29 → SUATTDRO 20:29 → 3N 21:40